=== PATIENT | male | born 1965 | race Caucasian/White ===

== ENCOUNTER 2021-11-11 07:24 | Emergency (ER) | payer OTHER ==
[~2021-11-11] VITALS: Ht 170.2 cm; Wt 113.4 kg
[2021-11-11] MEDS ORDERED: cloNIDine HCL 0.1 MG TAB PO ONE (08:15)
[2021-11-11 08:40] VITALS: BP 155/101
[2021-11-11] MEDS ORDERED: ACETAMINOPHEN 325 MG TAB PO ONE (09:00)
[2021-11-11] MEDS ORDERED: ACET-1158 PO (09:30)
[2021-11-11] MEDS ORDERED: CYCL-837 PO (09:30)
== END 2021-11-11 09:35 | disposition home or self-care (01) ==
LOC: ER 07:24
DX: S39.012A Strain of muscle, fascia and tendon of lower back, initial encounter (principal); I10 Essential (primary) hypertension; F17.210 Nicotine dependence, cigarettes, uncomplicated; V49.49XA Driver injured in collision with other motor vehicles in traffic accident, initial encounter; Y93.89 Activity, other specified; Y92.410 Unspecified street and highway as the place of occurrence of the external cause; Y99.8 Other external cause status
CPT/HCPCS: 72100